=== PATIENT | female | born 1990 | race American Indian/Alaskan Native ===

== ENCOUNTER 2020-11-28 14:58 | Inpatient (IN) | payer OTHER ==
[~2020-11-28] VITALS: Ht 152.4 cm; Wt 75.3 kg
[2020-11-28] MEDS ORDERED: FOLIC ACID20 MG PO (15:21)
[2020-11-28] MEDS ORDERED: PRENATAL CAPLE1 EAC1 PO (15:21)
[2020-11-28] MEDS ORDERED: MAGNESIUM100 MG PO (15:21)
== END 2020-11-30 14:54 | disposition home or self-care (01) | DRG 833 ==
LOC: OBS/DEL 14:58 → LDR 11-29 08:48
PROVIDERS: ADMIT Obstetrics & Gynecology; ATTEND Obstetrics & Gynecology
PROC: 4A1HXFZ Monitoring of Products of Conception, Cardiac Rhythm, External Approach (ICD-10-PCS; principal; 2020-11-29)
DX: O47.03 False labor before 37 completed weeks of gestation, third trimester (principal); Z3A.34 34 weeks gestation of pregnancy

== ENCOUNTER 2020-12-17 15:15 | Inpatient (IN) | payer OTHER ==
[~2020-12-17] VITALS: Ht 152.4 cm; Wt 2.7 kg
[~2020-12-17 15:15] MED LIST: FOLIC ACID20 MG PO; MAGNESIUM100 MG PO; PRENATAL CAPLE1 EAC1 PO
== END 2020-12-25 16:02 | disposition home or self-care (01) | DRG 788 ==
LOC: SURG-SUITE 12-22 11:35 → LDR 12-22 11:35 → SURG-SUITE 12-23 22:36 → OB/GYN 01-05 15:15
PROVIDERS: ADMIT Obstetrics & Gynecology; ATTEND Obstetrics & Gynecology
PROC: 4A1HXFZ Monitoring of Products of Conception, Cardiac Rhythm, External Approach (ICD-10-PCS; 2020-12-22)
PROC: 10D00Z1 Extraction of Products of Conception, Low, Open Approach (ICD-10-PCS; principal; 2020-12-22 12:15)
DX: O13.4 Gestational [pregnancy-induced] hypertension without significant proteinuria, complicating childbirth (principal); O14.94 Unspecified pre-eclampsia, complicating childbirth; Z3A.38 38 weeks gestation of pregnancy; Z37.0 Single live birth

== ENCOUNTER 2020-12-21 10:22 | Outpatient (CLI) | payer OTHER | END 2020-12-22 11:33 | disposition still patient (30) | LOC: OBS/DEL 10:22 | PROVIDERS: ATTEND Obstetrics & Gynecology | DX: O14.03 Mild to moderate pre-eclampsia, third trimester (principal); Z3A.38 38 weeks gestation of pregnancy ==